=== PATIENT | male | born 1970 | race Caucasian/White ===

== ENCOUNTER 2021-02-28 20:43 | Emergency (ER) | payer SELFPAY ==
[2021-02-28 21:04] VITALS: BP 115/70; PULSE 65; RESP 16; TEMP 36.3; O2SAT 97
[2021-02-28 22:58] VITALS: BP 106/67; PULSE 59; TEMP 36.7; O2SAT 100
[2021-03-01 01:37] VITALS: BP 128/80; PULSE 56; RESP 18; O2SAT 98
--- NOTE | 2021-03-01 01:42 | ED.ANIMALBIT ---
HPI - Animal Bite General Chief Complaint: Animal Bite Stated Complaint: dog bite hand Time Seen by Provider: 03/01/21 01:41 Source: patient Mode of arrival: ambulatory Limitations: no limitations History of Present Illness HPI narrative: Patient is a 50-year-old male complaining of dog bite on his right hand started prior to arrival. Patient states that it was his dog that bit him, fully vaccinated. 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 Patient does not know the last time he had tetanus shot. Denies any other pain or injury. Related Data Home Medications Medication Instructions Recorded Confirmed amoxicillin 500 mg PO Q12H 03/01/21 03/01/21 levofloxacin 500 mg PO DAILY 03/01/21 03/01/21 omeprazole 20 mg PO BID 03/01/21 03/01/21 Allergies Allergy/AdvReac Type Severity Reaction Status Date / Time No Known Allergies Allergy Verified 03/01/21 01:22 Review of Systems Review of Systems: All systems reviewed & are unremarkable except as noted in HPI and below PMFSH Comments Past medical history: None Family history: Unknown Social history: Non-smoker no EtOH or drug use Exam Const: General: no acute distress and alert Orientation/consciousness: patient oriented x3 HENMT: Head: normal to inspection Eyes: Conjunctivae: conjunctivae normal Neck: Neck: normal visual inspection Resp: Effort & Inspection: normal respiratory effort Neuro: General: patient oriented x3 and moves all extremities Extrem: Other: 2 puncture wounds right hand, full range of motion, neurovascular is intact Course Vital Signs Vital signs: Vital Signs Temperature 36.3 C L 02/28/21 21:04 Pulse Rate 65 02/28/21 21:04 Respiratory Rate 16 02/28/21 21:04 Blood Pressure 115/70 02/28/21 21:04 Pulse Oximetry 97 02/28/21 21:04 Temperature 36.7 C 02/28/21 22:58 Pulse Rate 56 L 03/01/21 01:37 Respiratory Rate 18 03/01/21 01:37 Blood Pressure 128/80 03/01/21 01:37 Pulse Oximetry 98 03/01/21 01:37 Discharge Plan Discharge Clinical Impression: Dog bite Qualifiers: Encounter type: initial encounter Qualified Code(s): W54.0XXA - Bitten by dog, initial encounter Patient Disposition: Home, Self-Care Condition: Stable Instructions: Antibiotic Form, Animal Bite (ED) Prescriptions: New amoxicillin-pot clavulanate [Augmentin] 875-125 mg tablet 1 tablet PO Q12H Qty: 14 RF: 0 No Action amoxicillin 500 mg Tablet 500 mg PO Q12H RF: 0 levofloxacin 500 mg Tablet 500 mg PO DAILY RF: 0 omeprazole 20 mg Tablet,Delayed Release (Dr/Ec) 20 mg PO BID RF: 0 Follow-up/Referrals: PHYSICIAN NOT ON STAFF,NONSTAFF [Non-Staff] - Gurpreet Barcenas MD [Physician] - 03/04/21 Time of Disposition: 01:48
[2021-03-01] MEDS: TETANUS,DIPHTHERIA,AC PERTUSSIS ADULT (0.5 ML) BOOSTRIX IM (02:16)
[2021-03-01] MEDS: HYDROcodone/acetaminophen (*CRX) 5-325 MG TABLET 1 TAB PO (02:16)
== END 2021-03-01 02:26 | disposition home or self-care (01) ==
LOC: ANHED 03-01 01:51
PROVIDERS: Emergency Provider Emergency Medicine
DX: S61.451A Open bite of right hand, initial encounter (principal); Z23 Encounter for immunization; W54.0XXA Bitten by dog, initial encounter
CPT/HCPCS: 90471; 90715; 99283; A9270